=== PATIENT | male | born 1950 | race Caucasian/White ===

== ENCOUNTER 2019-12-12 11:54 | Emergency (ER) | payer MEDICARE ==
[~2019-12-12] VITALS: Ht 188 cm; Wt 86.2 kg
[~2019-12-12 11:54] MED LIST: CALC500T29 PO; DOCU100C36 PO; OXYC-128 PO; OXYC20TA58 PO; POLY255P19 PO; TAMS0.4C34 PO
[2019-12-12] MEDS ORDERED: OLANZAPINE 10 MG VIAL IM ONE ×4 (12:01→16:30)
--- NOTE | 2019-12-12 12:18 | NUR ---
Pt BIB staff from [place] via his own wheelchair, for psych eval.
--- NOTE | 2019-12-12 12:38 | NUR ---
Pt provided hospital lunch tray, pt ate 100% of tray. Gamaes hyperverbal.
[2019-12-12] MEDS ORDERED: ACETAMINOPHEN ES 500 MG TABLET ONE (12:44)
[2019-12-12] MEDS ORDERED: ACETAMINOPHEN ES 500 MG TABLET PO ONE (12:45)
[2019-12-12 12:47] LABS: BASOPHILS # (AUTO) 0.1 K/uL (0.0-8.0); BASOPHILS % (AUTO) 0.9 % (0.0-2.0); EOSINOPHILS # (AUTO) 0.4 K/uL (0.0-0.7); EOSINOPHILS % (AUTO) 4.2 % (0.0-7.0); HEMATOCRIT 31.8 % (36.7-47.1); HEMOGLOBIN 9.9 g/dL (12.5-16.3); LYMPHOCYTES # (AUTO) 1.3 K/uL (20.0-40.0); LYMPHOCYTES % (AUTO) 15.6 % (20.5-51.5); MEAN CORPUSCULAR HEMOGLOBIN 19.6 uug (23.8-33.4); MEAN CORPUSCULAR HGB CONC 31 g/dL (32.5-36.3); MONOCYTES # (AUTO) 0.8 K/uL (2.0-10.0); MONOCYTES % (AUTO) 9.4 % (0.0-11.0); NEUTROPHILS % (AUTO) 69.9 % (38.5-71.5); PLATELET COUNT (AUTO) 532 K/uL (152-348); RED BLOOD CELL COUNT(AUTO) 5.05 MIL/uL (4.06-5.63); WHITE BLOOD COUNT (AUTO) 8.6 K/uL (3.6-10.2)
[2019-12-12 12:56] LABS: CARBON DIOXIDE 24 mmol/L (21-32); CHLORIDE 102 mmol/L (98-107); CREATININE 1.1 mg/dL (0.6-1.3); GLUCOSE 104 mg/dL (74-106); POTASSIUM 4.3 mmol/L (3.5-5.1); UREA NITROGEN, BLOOD 18 mg/dL (7-18)
--- NOTE | 2019-12-12 12:57 | NUR ---
Meron Meier LCSW at the bedside for Psych eval.
[2019-12-12] MEDS ORDERED: ZIPRASIDONE MESYLATE 20 MG VIAL IM ONE ×2 (13:00→13:03)
[2019-12-12 13:01] LABS: ALANINE AMINOTRANSFERASE 17 U/L (16-63); ALKALINE PHOSPHATASE 97 U/L (50-136); ASPARTATE AMINOTRANSFERASE 16 U/L (15-37); BILIRUBIN,DIRECT 0.1 mg/dL (0.0-0.2); BILIRUBIN,TOTAL 0.4 mg/dL (0.2-1.0); TOTAL PROTEIN, SERUM 7.7 g/dL (6.4-8.2)
[2019-12-12] MEDS ORDERED: POTA10CA43 PO (13:01)
[2019-12-12] MEDS ORDERED: FURO40TA5 PO (13:01)
[2019-12-12] MEDS ORDERED: SERT100T PO (13:01)
[2019-12-12] MEDS ORDERED: FURO20TA4 PO (13:01)
[2019-12-12] MEDS ORDERED: FINA5TAB11 PO (13:01)
[2019-12-12] MEDS ORDERED: LORA10TA7 PO (13:01)
[2019-12-12] MEDS ORDERED: CALC200T29 PO (13:01)
[2019-12-12] MEDS ORDERED: MELA5TAB PO (13:01)
[2019-12-12] MEDS ORDERED: ACET650T12 PO (13:01)
[2019-12-12] MEDS ORDERED: LOPE2CAP14 PO (13:01)
[2019-12-12] MEDS ORDERED: LORA-259 PO (13:01)
[2019-12-12] MEDS ORDERED: METO2.5T2 PO (13:01)
[2019-12-12] MEDS ORDERED: TRAM50TA2 PO (13:01)
[2019-12-12] MEDS ORDERED: SPIR25TA6 PO (13:01)
[2019-12-12] MEDS ORDERED: HYDR-501 PO (13:01)
[2019-12-12] MEDS ORDERED: FAMO20TA8 PO (13:01)
[2019-12-12] MEDS ORDERED: ACET325T53 PO (13:01)
[2019-12-12] MEDS ORDERED: CLOBETASOL 0.05% TP (13:01)
[2019-12-12] MEDS ORDERED: MEDR400V IM (13:01)
[2019-12-12] MEDS ORDERED: [UNRECOGNIZED DRUG - CODE] PO ×2 (13:01)
[2019-12-12] MEDS ORDERED: OXCA300T15 PO (13:01)
[2019-12-12] MEDS ORDERED: QUET100T PO (13:01)
[2019-12-12 13:04] LABS: ETHANOL < 3 MG/DL (0-0)
--- NOTE | 2019-12-12 13:04 | NUR ---
Pt remaines agitated, hyperverbal and yellingmDr Salcido aware. Ortder recieved and carried.
[2019-12-12 13:05] LABS: ACETAMINOPHEN < 2.0 ug/mL (10-30)
[2019-12-12 13:38] LABS: BAND % (MANUAL) 2 % (0-10); EOSINOPHILS % (MANUAL) 3 % (0-8); LYMPHOCYTES % (MANUAL) 11 % (20-40); MONOCYTES % (MANUAL) 10 % (2-10); NEUTROPHILS % (MANUAL) 74 % (42-75)
[2019-12-12] MEDS ORDERED: LORAZEPAM 2 MG/1 ML VIAL IM ONE (14:15)
[2019-12-12] MEDS ORDERED: LORAZEPAM 2 MG/1 ML VIAL ONE (14:18)
--- NOTE | 2019-12-12 14:20 | NUR ---
Urine collected and sent to LAB. Pt is agitated but slightly calmer.
[2019-12-12 14:23] LABS: *BILIRUBIN,URIN NEGATIVE (NEGATIVE); *BLOOD, URINE NEGATIVE (NEGATIVE); *CLARITY,URINE CLEAR (CLEAR); *COLOR,URINE YELLOW (YELLOW); *KETONES,URINE NEGATIVE (NEGATIVE); *UROBILINOGEN,URINE 0.2 E.U./dl (NORMAL); LEUKOCYTE ESTERASE ,URINE NEGATIVE (NEGATIVE); NITRITE, URINE NEGATIVE (NEGATIVE); UGLUCOSE NEGATIVE (NEGATIVE)
[2019-12-12 14:33] LABS: *AMPHETAMINE, URINE NEGATIVE (NEGATIVE); *BARBITURATE, URINE NEGATIVE (NEGATIVE); *CANNABINOID, URINE POSITIVE (NEGATIVE); *COCCAINE, URINE NEGATIVE (NEGATIVE); *OPIATE, URINE NEGATIVE (NEGATIVE); *PHENCYCLIDINE SCREEN,URINE NEGATIVE (NEGATIVE)
--- NOTE | 2019-12-12 14:33 | NUR ---
Dr Salcido medically cleared the Pt. S. Hardeep [facility] made aware.
[2019-12-12] MEDS ORDERED: CEFAZOLIN 1 G VIAL IM ONE (15:30)
[2019-12-12] MEDS ORDERED: CEFAZOLIN 1 G VIAL ONE (15:34)
--- NOTE | 2019-12-12 15:45 | NUR ---
Recieved a call from Judi Meier [facility] regarding pt Psychiatrist. Dr Jason simons be his Psych MD.
--- NOTE | 2019-12-12 15:45 | NUR ---
After pt recieved Zyprexa, Ativan and Geodon, pt is relaxed and calm at this time. Close monitoring continues by me.
--- NOTE | 2019-12-12 16:00 | NUR ---
Patient is resting comfortably in bed with eyes closed, NAD noted, easily arousable to touch.
--- NOTE | 2019-12-12 16:35 | NUR ---
Placed a call to [facility] for [facility]ina ETA 20 min, trip # [id number].
--- NOTE | 2019-12-12 16:38 | NUR ---
Patient is resting comfortably in bed with eyes closed, NAD noted.
[2019-12-12 17:25] VITALS: BP 134/53
--- NOTE | 2019-12-12 17:27 | NUR ---
Report given to transfering national sales consultant, blood work results, and imaging result, as well as script and d/c paperwork given. All pt's belongings, including pt's wheelchair sent w/ pt.
== END 2019-12-12 17:35 ==
LOC: MERGE 11:54 → ER 11:54
DX: L03.116 Cellulitis of left lower limb (principal); R45.1 Restlessness and agitation; Z82.49 Family history of ischemic heart disease and other diseases of the circulatory system
CPT/HCPCS: 36415; 80048; 80076; 80307 ×2; 80329; 81001; 85007; 85025; 93005; 93971; 96372 ×5; 99285; G0480; J0690; J2060; J3486; 70030-TC; A4663; A9150; C1758; J2358